=== PATIENT | male | born 1995 | race Caucasian/White ===

== ENCOUNTER 2017-03-21 17:46 | Emergency (ER) | payer BC ==
[2017-03-21 17:53] VITALS: RESP 16; TEMP 97.7
[2017-03-21 18:09] VITALS: BP 141/82; PULSE 57; O2SAT 99
--- NOTE | 2017-03-21 18:14 | CPEKG ---
Heart Rate: 55 RR Interval: 1091 P-R Interval: 156 QRSD Interval: 92 QT Interval: 404 QTC Interval: 387 P [place]: 26 QRS [place]: 61 T Wave [place]: 50 EKG Severity - ABNORMAL ECG - EKG Impression: SINUS RHYTHM EKG Impression: CONSIDER LEFT VENTRICULAR HYPERTROPHY Electronically Signed By: Twin Mustafa 22-Mar-2017 21:54:34
--- NOTE | 2017-03-21 18:22 | EDPHY ---
H & P Time Seen by Provider: 03/21/17 18:01 HPI/ROS: CHIEF COMPLAINT: Palpitations HISTORY OF PRESENT ILLNESS: The patient is a 21-year-old male who presents to the emergency department with heart palpitations. Patient states he snorted cocaine on . He has been taking his Adderall medication. This morning he woke and felt palpitations. He denies any chest pain. No shortness of breath. No nausea, vomiting or diaphoresis. No leg pain or swelling. No recent travel. Patient states that he was feeling his symptoms while on the monitor and during his EKG. REVIEW OF SYSTEMS: My complete review of systems is negative except as mentioned in the HPI. Past Medical/Surgical History: Attention deficit hyperactivity disorder Past surgical history: Denies Social history: The patient has used cocaine. The patient does not smoke. Smoking Status: Never smoked Physical Exam: 132/67, 67, 16, 98% on room air, 36.5 GENERAL: Well-appearing, in no acute distress, alert. HEENT: Eyes normal to inspection, normal pharynx, no signs of dehydration. NECK: No thyromegaly, no lymphadenopathy, supple. RESPIRATORY: Clear to auscultation bilaterally, no rales, rhonchi or wheezing. CVS: Regular rate and rhythm, no rubs, murmurs, or gallops. ABDOMEN: Soft, nontender, nondistended, no organomegaly. BACK: Normal to inspection, no CVA tenderness. SKIN: Normal color, no rash, warm, dry. No pallor. EXTREMITIES: No pedal edema, no calf tenderness, no Homans sign or cords, no joint swelling. NEURO/PSYCH: Alert and oriented x3, normal mood and affect, normal motor sensory exam. Constitutional: Initial Vital Signs Temperature (C) 36.5 C 03/21/17 17:50 Heart Rate 67 03/21/17 17:50 Respiratory Rate 16 03/21/17 17:50 Blood Pressure 132/67 H 03/21/17 17:50 O2 Sat (%) 98 03/21/17 17:50 O2 Delivery Mode Room Air Allergies/Adverse Reactions: No Known Allergies Allergy (Unverified 03/21/17 17:53) Home Medications: Medication Instructions Recorded Amphet Asp and D/Amphet [Adderall 10 mg PO 03/21/17 10 MG (*)] Medical Decision Making ED Course/Re-evaluation: In the emergency department an EKG was performed. EKG shows normal sinus rhythm, normal rate, normal axis, normal intervals. LVH. There are no ST or T-wave abnormalities. I discussed the EKG results with the patient. I discussed his cocaine use as well as Adderall use. I answered all his questions. I warned him from using cocaine in the future. He is given follow-up with Cardiology. He is given warnings prior to leaving. Differential Diagnosis: My differential includes but is not limited to ACS, acute AR, reaction to cocaine, palpitations, dissection, aneurysm, thyroid disease, electrolyte abnormality, sugar abnormality Departure - Departure Disposition: Home, Routine, Self-Care Clinical Impression: Palpitations Condition: Good Instructions: Palpitations (ED) Additional Instructions: Avoid using cocaine. Return with increasing chest pain, shortness of breath, worsening palpitations or any other concerns. Referrals: [facility]ANEL[facility] STEWART [Other] - 2-3 days without fail [facility] [Provider Group] - 3-4 days, if not improved
== END 2017-03-21 18:42 | disposition home or self-care (01) ==
DX: R00.2 Palpitations (principal)